=== PATIENT | male | born 1950 | race Caucasian/White ===

== ENCOUNTER 2019-09-21 05:29 | Emergency (ER) | payer MEDICARE ==
[~2019-09-21] VITALS: Ht 188 cm; Wt 89.3 kg
[2019-09-21 05:30] VITALS: BP 159/63
[2019-09-21] MEDS ORDERED: LIDOCAINE-MPF 1%, 5ML ONE (05:40)
--- NOTE | 2019-09-21 05:42 | NUR ---
ASHLEY PA AT BS TO NUMB PT'S L 3RD FINGER.
--- NOTE | 2019-09-21 05:50 | NUR ---
LILLY HUGHES AT BS TO IRRIGATE WOUND.
[2019-09-21] MEDS ORDERED: LIDOCAINE-MPF 1%, 5ML INFIL ONE (06:00)
[2019-09-21] MEDS ORDERED: DOXA2TAB9 PO (06:13)
[2019-09-21] MEDS ORDERED: DICLOFENAC PO (06:13)
[2019-09-21] MEDS ORDERED: CAND8TAB4 PO (06:13)
--- NOTE | 2019-09-21 06:13 | NUR ---
ERP AT BS TO SUTURE FINGER NOW.
--- NOTE | 2019-09-21 07:11 | NUR ---
ER PA AND ERP WERE IN FOR RECHECK. L 3RD FINGER WOUND DRESSED WITH XEROFORM, GAUZE, KERLIX WRAP. D/C INSTRUCTIONS, MEDS & F/U APPT RV'WD WITH PT, HE VERBALIZES UNDERSTANDING. RX GIVEN X1. PT AMBULATED OUT OF ED WITHOUT DIFFICULTY.
[2019-09-21] MEDS ORDERED: NEOSPORIN OINT. PKT 1 PACKET ONE (07:31)
== END 2019-09-21 07:11 | disposition home or self-care (01) ==
LOC: ED 07:05
DX: S61.213A Laceration without foreign body of left middle finger without damage to nail, initial encounter (principal); W26.9XXA Contact with unspecified sharp object(s), initial encounter; Y93.89 Activity, other specified; Y92.521 Bus station as the place of occurrence of the external cause; Y99.8 Other external cause status
CPT/HCPCS: 12041; 99284